=== PATIENT | female | born 1945 | race Caucasian/White ===

== ENCOUNTER 2018-03-25 12:53 | Inpatient (IN) | payer OTHER, BC ==
--- NOTE | 2018-03-25 13:30 | PDOC ---
History of Present Illness <Valencia Dee - Last Filed: 03/25/18 17:02> - General History Source: Patient Exam Limitations: No Limitations - History of Present Illness Initial Comments: 03/25/18 13:19 72 year old woman with a history of obesity, HTN, HLD and bilaterally leg cellulitis who presents after fall last night, L hip pain and inability to raise herself up off the ground. She is unsure whether she had difficulty lifting off the ground due to her L hip pain or her large body habitus. The patient remained on the ground for approximately 12 hours until her home nurse come by saw her and called EMS. She has not eaten or drank anything since then and had urinated on herself. She states the pain is somewhat relieved now. She denies any other extremity pain, abdominal pain, chest pain, back pain or shortness of breath. She has no other compliants at bedside. PMHX: as in HPI PSHX: Meds: Allergies: none Tob: Etoh: Rec drugs: PCP: [place] <Renea Rogers - Last Filed: 03/26/18 09:22> - General Chief Complaint: Injury Stated Complaint: FALL Time Seen by Provider: 03/25/18 13:06 Past History <Valencia Dee - Last Filed: 03/25/18 17:02> - Past Medical History COPD: No HTN: Yes Hypercholesterolemia: Yes - Suicide/Smoking/Psychosocial Hx Smoking History: Former smoker Have you smoked in the past 12 months: No If you are a former smoker, when did you quit?: 35 yrs Information on smoking cessation initiated: No Hx Alcohol Use: No Drug/Substance Use Hx: No <Renea Rogers - Last Filed: 03/26/18 09:22> - Past Medical History Allergies/Adverse Reactions: Allergies Allergy/AdvReac Type Severity Reaction Status Date / Time No Known Allergies Allergy Verified 03/25/18 13:15 Home Medications: Ambulatory Orders Unobtainable 10/05/17 Review of Systems - Review of Systems Able to Perform ROS?: Yes Is the patient limited [place]ar[place]uan proficient: No Constitutional: No: Chills, Diaphoresis, Fever Respiratory: No: Cough, Orthopnea, Shortness of Breath Cardiac (ROS): No: Chest Pain ABD/GI: No: Constipated, Diarrhea, Nausea, Vomiting Neurological: No: Headache, Numbness, Tingling <Renea Rogers - Last Filed: 03/26/18 09:22> *Physical Exam - Vital Signs Last Vital Signs Temp Pulse Resp BP Pulse Ox 98.2 F 80 18 116/74 100 03/25/18 13:12 03/25/18 13:12 03/25/18 13:12 03/25/18 13:12 03/25/18 13:12 <Valencia Dee - Last Filed: 03/25/18 17:02> - Vital Signs Last Vital Signs Temp Pulse Resp BP Pulse Ox 98.2 F 80 18 116/74 100 03/25/18 13:12 03/25/18 13:12 03/25/18 13:12 03/25/18 13:12 03/25/18 13:12 - Physical Exam Comments: 03/25/18 13:31 GENERAL: Awake, alert, and fully oriented, in no acute distress HEAD: No signs of trauma, normocephalic, atraumatic EYES: PERRLA, EOMI, sclera anicteric, conjunctiva clear ENT: oropharynx clear without exudates. Dry mucosa NECK: Normal ROM, supple, no lymphadenopathy, JVD, or masses LUNGS: No distress, speaks full sentences, clear to auscultation bilaterally HEART: Regular rate and rhythm, normal S1 and S2, no murmurs, rubs or gallops, peripheral pulses normal and equal bilaterally. ABDOMEN: Soft, nontender, No guarding, no rebound. No masses EXTREMITIES : Normal inspection, + mild L hip tenderness to palpation, no pelvic instability, 5/5 antigravity strength, NV intact NEUROLOGICAL: Normal speech, normal gait, no focal sensorimotor deficits SKIN: Warm, Dry, normal turgor, no rashes or lesions noted <Renea Rogers - Last Filed: 03/26/18 09:22> ED Treatment Course - LABORATORY CBC & Chemistry Diagram: 03/25/18 13:28 03/25/18 13:28 - ADDITIONAL ORDERS Additional order review: Laboratory Results 03/25/18 03/25/18 03/25/18 14:20 14:10 13:28 PT with INR INR PTT (Actin FS) Sodium 142 Potassium 3.7 Chloride 102 Carbon Dioxide 30 Anion Gap 10 BUN 59 H Creatinine 1.6 H Creat Clearance w eGFR 31.87 Random Glucose 120 H Calcium 9.1 Total Bilirubin 0.8 AST 135 H ALT 106 H Alkaline Phosphatase 485 H Creatine Kinase 1436 H Creatine Kinase Index 1.7 CK-MB (CK-2) 25.66 H Total Protein 7.1 Albumin 3.7 Urine Color Yellow Urine Appearance Clear Urine pH 6.0 Ur Specific [place] 1.016 Urine Protein Negative Urine Glucose (UA) Negative Urine Ketones Negative Urine Blood Negative Urine Nitrite Negative Urine Bilirubin Negative Urine Urobilinogen Negative Ur Leukocyte Esterase Negative 03/25/18 13:28 PT with INR 12.40 INR 1.10 H PTT (Actin FS) 32.1 Sodium Potassium Chloride Carbon Dioxide Anion Gap BUN Creatinine Creat Clearance w eGFR Random Glucose Calcium Total Bilirubin AST ALT Alkaline Phosphatase Creatine Kinase Creatine Kinase Index CK-MB (CK-2) Total Protein Albumin Urine Color Urine Appearance Urine pH Ur Specific [place] Urine Protein Urine Glucose (UA) Urine Ketones Urine Blood Urine Nitrite Urine Bilirubin Urine Urobilinogen Ur Leukocyte Esterase 03/25/18 13:28 RBC 5.33 H MCV 86.6 MCHC 33.6 RDW 14.7 MPV 7.9 Neutrophils % 86.4 H Lymphocytes % 6.7 L D Monocytes % 4.4 Eosinophils % 1.9 Basophils % 0.6 - Medications Given in the ED: ED Medications Discontinued Medications Generic Name Dose Route Start Last Admin Trade Name [place] PRN Reason Stop Dose Admin Ampicillin Sodium/Sulbactam 100 mls @ 200 mls/hr 03/25/18 14:26 03/25/18 16: 53 Sodium 3 gm/ Sodium Chloride IVPB 03/25/18 14:55 200 mls/hr ONCE ONE Administration Vancomycin HCl 1,000 mg/ 250 mls @ 166.667 mls/hr 03/25/18 14:27 03/25/18 14: 34 Dextrose IVPB 03/25/18 15:56 166.667 mls/hr ONCE ONE Administration Protocol <Valencia Dee - Last Filed: 03/25/18 17:02> - LABORATORY CBC & Chemistry Diagram: 03/26/18 07:00 03/26/18 07:00 <Renea Rogers - Last Filed: 03/26/18 09:22> Medical Decision Making - Medical Decision Making 03/25/18 13:33 72 year old woman with a history of obesity, HTN, HLD and bilaterally leg cellulitis who presents after fall last night, L hip pain and inability to raise herself up off the ground. She is unsure whether she had difficulty lifting off the ground due to her L hip pain or her large body habitus. The patient remained on the ground for approximately 12 hours until her home nurse come by saw her and called EMS. She has not eaten or drank anything since then. She states the pain is somewhat relieved now. DDX including but not limited to: fracture vs contusion vs dehydration vs rhabdomyolysis W/U: - cbc, cmp TX: - 1L NS Scores: ED Course: Patient stable in no acute distress. <Renea Rogers - Last Filed: 03/26/18 09:22> *DC/Admit/Observation/Transfer - Discharge Dispostion Decision to Admit order: Yes <Valencia Dee - Last Filed: 03/25/18 17:02> <Renea Rogers - Last Filed: 03/26/18 09:22> Diagnosis at time of Disposition: Cellulitis Qualifiers: Site of cellulitis: extremity Site of cellulitis of extremity: lower extremity Laterality: left Qualified Code(s): L03.116 - Cellulitis of left lower limb Rhabdomyolysis Qualifiers: Rhabdomyolysis type: traumatic Encounter type: initial encounter Qualified Code (s): T79.6XXA - Traumatic ischemia of muscle, initial encounter - Discharge Dispostion Condition at time of disposition: Stable
[2018-03-25 13:41] LABS: BASO % 0.6 % (0-2.0); EOS % 1.9 % (0-4.5); HEMATOCRIT 46.1 % (32.4-45.2); HEMOGLOBIN 15.5 GM/dL (10.7-15.3); LYMPH % 6.7 % (8-40); MCHC 33.6 g/dl (32.0-36.0); MEAN CELL VOLUME 86.6 fl (80-96); MEAN PLT VOLUME 7.9 fl (7.5-11.1); MONO % 4.4 % (3.8-10.2); NEUT % 86.4 % (42.8-82.8); PLATELET COUNT 301 K/MM3 (134-434); RBC 5.33 M/mm3 (3.60-5.2); RDW 14.7 % (11.6-15.6); WHITE BLOOD COUNT 16.9 K/mm3 (4.0-10.0)
[2018-03-25] MEDS: SODIUM CHLORIDE 1,000 ML IV SCH (13:41)
[2018-03-25 14:02] LABS: INR 1.1 (0.83-1.09); PROTHROMBIN TIME (PATIENT) 12.4 SEC (9.7-13.0)
[2018-03-25 14:05] LABS: ACTIVATED PTT 32.1 SECONDS (25.2-36.5)
[2018-03-25 14:12] LABS: ALBUMIN 3.7 g/dl (3.4-5.0); ANION GAP 10 MMOL/L (8-16); BLOOD UREA NITROGEN 59 mg/dL (7-18); CALCIUM 9.1 mg/dL (8.5-10.1); CHLORIDE 102 mmol/L (98-107); CO2 30 mmol/L (21-32); CREATININE 1.6 mg/dL (0.55-1.02); GLUCOSE,RANDOM 120 mg/dL (74-106); POTASSIUM 3.7 mmol/L (3.5-5.1); SGOT/AST 135 U/L (15-37); SGPT/ALT 106 U/L (12-78); SODIUM 142 mmol/L (136-145)
[2018-03-25 14:14] LABS: ALK PHOS 485 U/L (45-117); BILIRUBIN,TOTAL 0.8 mg/dL (0.2-1.0); TOT PROT 7.1 g/dl (6.4-8.2)
[2018-03-25 14:23] LABS: URINE APPEARANCE CLEAR; URINE BILIRUBIN NEGATIVE (<2.0 mg/dL); URINE COLOR YELLOW; URINE GLUCOSE (UA) NEGATIVE (NEGATIVE); URINE KETONE NEGATIVE (NEGATIVE); URINE LEUK ESTERASE NEGATIVE (NEGATIVE); URINE NITRITE NEGATIVE (NEGATIVE); URINE PROTEIN NEGATIVE (NEGATIVE); URINE UROBILINOGEN NEGATIVE mg/dL (0.2-1.0)
--- NOTE | 2018-03-25 14:24 | PDOC ---
Attending Attestation - Resident Resident Name: Renea Rogers - ED Attending Attestation I have performed the following: I have examined & evaluated the patient, The case was reviewed & discussed with the resident, I agree w/resident's findings & plan, Exceptions are as noted - HPI HPI: 72 yo F history morbid obesity, HTN, HL presents s/p fall. She states that she had a mechanical fall, could not get off the floor by herself. Home nurse found her and called EMS. She was lying in a puddle of urine. - Physicial Exam PE: GENERAL: Awake, alert, and fully oriented, in no acute distress. Morbidly obese. HEAD: No signs of trauma EYES: PERRLA, EOMI, sclera anicteric, conjunctiva clear ENT: Auricles normal inspection, hearing grossly normal, nares patent, oropharynx clear without exudates. Moist mucosa NECK: Normal ROM, supple, no lymphadenopathy, JVD, or masses LUNGS: Breath sounds equal, clear to auscultation bilaterally. No wheezes, and no crackles HEART: Regular rate and rhythm, normal S1 and S2, no murmurs, rubs or gallops ABDOMEN: Soft, nontender, normoactive bowel sounds. No guarding, no rebound. No masses EXTREMITIES: B/L inner thighs with erythematous, malodorous rash with scaling. + Erythema to L posterior thigh. Normal range of motion, no edema. No clubbing or cyanosis. No cords or tenderness NEUROLOGICAL: Cranial nerves II through XII grossly intact. Normal speech. Motor and sensation intact. SKIN: Warm, Dry, normal turgor. - Medical Decision Making Pt with significant cellulitis to L posterior thigh after lying in urine all night. Also with significant inflammation of B/L inner thighs, likely yeast based on appearance and odor. Will treat with topical antifungal, will give IV abx for posterior thigh.
[2018-03-25] MEDS ORDERED: AMPICILLIN NA/SULBACTAM NA 3 GM in SODIUM CHLORIDE 100 ML IVPB ONE (14:26)
[2018-03-25] MEDS ORDERED: VANCOMYCIN 1,000 MG in DEXTROSE 5%-WATER - 250 ML IVPB ONE (14:27)
[2018-03-25] MEDS ORDERED: VANCOMYCIN 1 GRAM (PRE-DOCKED) 1,000 MG/250 ML BAG IVPB ONE (14:29)
--- NOTE | 2018-03-25 16:16 | EKG ---
Test Reason : Blood Pressure : / mmHG Vent. Rate : 074 BPM Atrial Rate : 074 BPM P-R Int : 144 ms QRS Dur : 078 ms QT Int : 412 ms P-R-T Axes : 045 -49 075 degrees QTc Int : 457 ms NORMAL SINUS RHYTHM LEFT AXIS DEVIATION INFERIOR INFARCT , AGE UNDETERMINED ANTEROLATERAL INFARCT (CITED ON OR BEFORE 05-OCT-2017) ABNORMAL ECG WHEN COMPARED WITH ECG OF 05-OCT-2017 10:17, NO SIGNIFICANT CHANGE WAS FOUND Confirmed by SACHA MUELLER MD ([id number]) on 03/25/2018 4:15:42 PM Referred By: Confirmed By:SACHA MUELLER MD
--- NOTE | 2018-03-25 17:05 | HP ---
Admitting History and Physical - Primary Care Physician PCP: Anisa Julian - Admission Chief Complaint: fall, unable to get up History of Present Illness: slipped/rolled out of bed at home two days ago, was unable to get up, was lying on the floor in her own urine for 2 days, until friend called on her and called 911. has long h/o recurrent cellulitis and has been to [facility] for rehab after last episode of cellulitis lives alone , walks with bariatric walker History Source: Patient, Friend Limitations to Obtaining History: No Limitations - Past Medical History Cardiovascular: Yes: HTN, Hyperlipdemia Rheumatology: Yes: Gout Endocrine: Yes: Other (morbid obesity) - Past Surgical History Past Surgical History: Yes: Appendectomy (in her youth), Cholecystectomy (1998) Additional Past Surgical History: carpal tunnel 2009 - Smoking History Smoking history: Former smoker Have you smoked in the past 12 months: No If you are a former smoker, when did you quit?: 35 yrs - Alcohol/Substance Use Hx Alcohol Use: No - Social History Usual Living Arrangement: Yes: Alone ADL: Independent History of Recent Travel: No Home Medications - Allergies Allergies/Adverse Reactions: Allergies Allergy/AdvReac Type Severity Reaction Status Date / Time No Known Allergies Allergy Verified 03/25/18 13:15 - Home Medications Home Medications: Ambulatory Orders Unobtainable 10/05/17 Family Disease History - Family Disease History Family History: Unremarkable Review of Systems - Review of Systems Constitutional: reports: Weakness. denies: Fever, Lethargy, Loss of Appetite Eyes: denies: No Symptoms HENT: denies: No Symptoms Neck: denies: No Symptoms Cardiovascular: denies: No Symptoms Respiratory: denies: No Symptoms Gastrointestinal: denies: No Symptoms Genitourinary: denies: No Symptoms Musculoskeletal: reports: Back Pain, Extremity Pain Psychiatric: reports: Anxiety Physical Examination Vital Signs: Vital Signs Temperature 98.2 F 03/25/18 13:12 Pulse Rate 80 03/25/18 13:12 Respiratory Rate 18 03/25/18 13:12 Blood Pressure 116/74 03/25/18 13:12 O2 Sat by Pulse Oximetry (%) 100 03/25/18 13:12 Constitutional: Yes: Obese, Poor Hygeine Eyes: Yes: WNL HENT: Yes: WNL Neck: Yes: WNL Cardiovascular: Yes: WNL Respiratory: Yes: WNL Gastrointestinal: Yes: WNL Edema: No Peripheral Pulses WNL: Yes Integumentary: Yes: Other (eryhtematous indurated skin involving entire left hip surface venous stasis dermatitis over both shins extensive intertrigo in skin folds under abdmoen, groin and thigh folds) Neurological: Yes: WNL Psychiatric: Yes: Agitated, Other (cries easily, looses focus) Labs: CBC, BMP 03/25/18 13:28 03/25/18 13:28 Problem List - Problems (1) Morbid obesity due to excess calories Code(s): E66.01 - MORBID (SEVERE) OBESITY DUE TO EXCESS CALORIES (2) Hyperlipidemia Code(s): E78.5 - HYPERLIPIDEMIA, UNSPECIFIED Qualifiers: Hyperlipidemia type: pure hypercholesterolemia Qualified Code(s): E78.00 - Pure hypercholesterolemia, unspecified; E78.0 - Pure hypercholesterolemia (3) Hypertension Code(s): I10 - ESSENTIAL (PRIMARY) HYPERTENSION Qualifiers: Hypertension type: essential hypertension Qualified Code(s): I10 - Essential (primary) hypertension (4) Cellulitis Code(s): L03.90 - CELLULITIS, UNSPECIFIED Qualifiers: Site of cellulitis: extremity Site of cellulitis of extremity: lower extremity Laterality: left Qualified Code(s): L03.116 - Cellulitis of left lower limb (5) Rhabdomyolysis Code(s): M62.82 - RHABDOMYOLYSIS Qualifiers: Rhabdomyolysis type: traumatic Encounter type: initial encounter Qualified Code(s): T79.6XXA - Traumatic ischemia of muscle, initial encounter Assessment/Plan iv fluids hold statins and antihypertensives for now iv abx will request id eval physical therapy in am dvt prophylaxis
[2018-03-25] MEDS ORDERED: ACETAMINOPHEN 325 MG TABLET (FP) PO PRN (17:39)
[2018-03-25] MEDS ORDERED: LORazepam 0.5 MG TABLET PO PRN (17:42)
[2018-03-25] MEDS: SODIUM CHLORIDE 0.45% 1,000 ML IV SCH (18:52)
[2018-03-25] MEDS: AMPICILLIN NA/SULBACTAM NA 3 GM in SODIUM CHLORIDE 100 ML IVPB SCH (18:52)
[2018-03-25 19:57] VITALS: BMI 60.0
[2018-03-25] MEDS ORDERED: AMPICILLIN NA/SULBACTAM NA 3 GM in SODIUM CHLORIDE 100 ML IVPB SCH (21:00)
[2018-03-25] MEDS ORDERED: PT OWN MED DRAWER 7, Y5N ONE (23:07)
[2018-03-26] MEDS: AMPICILLIN NA/SULBACTAM NA 3 GM in SODIUM CHLORIDE 100 ML IVPB SCH ×3 (02:35→17:21)
[2018-03-26 07:24] LABS: BASO % 0.5 % (0-2.0); EOS % 2.4 % (0-4.5); HEMATOCRIT 40.4 % (32.4-45.2); HEMOGLOBIN 12.9 GM/dL (10.7-15.3); LYMPH % 9.8 % (8-40); MCH 27.8 pg (25.7-33.7); MCHC 31.8 g/dl (32.0-36.0); MEAN CELL VOLUME 87.5 fl (80-96); MEAN PLT VOLUME 7.9 fl (7.5-11.1); MONO % 6.2 % (3.8-10.2); NEUT % 81.1 % (42.8-82.8); PLATELET COUNT 212 K/MM3 (134-434); RBC 4.62 M/mm3 (3.60-5.2); RDW 14.8 % (11.6-15.6); WHITE BLOOD COUNT 14.4 K/mm3 (4.0-10.0)
[2018-03-26 07:58] LABS: CHLORIDE 105 mmol/L (98-107); POTASSIUM 3.4 mmol/L (3.5-5.1); SODIUM 141 mmol/L (136-145)
[2018-03-26 08:15] LABS: ALK PHOS 417 U/L (45-117); ANION GAP 10 MMOL/L (8-16); BILIRUBIN,TOTAL 0.5 mg/dL (0.2-1.0); BLOOD UREA NITROGEN 62 mg/dL (7-18); CALCIUM 8.5 mg/dL (8.5-10.1); CO2 26 mmol/L (21-32); CREATININE 1.7 mg/dL (0.55-1.02); GLUCOSE,RANDOM 106 mg/dL (74-106); SGOT/AST 98 U/L (15-37); SGPT/ALT 85 U/L (12-78); TOT PROT 5.7 g/dl (6.4-8.2)
[2018-03-26] MEDS ORDERED: PT OWN MED DRAWER 7, Y5N ONE ×3 (09:39→21:47)
[2018-03-26] MEDS: ENOXAPARIN NA (PORCINE) 40 MG/0.4 ML DISP.SYRIN SQ SCH (09:48)
[2018-03-26] MEDS ORDERED: POTASSIUM CHLORIDE TABS 20 MEQ TABLET.ER (FP) PO ONE ×2 (11:28→17:30)
--- NOTE | 2018-03-26 11:59 | PN ---
Progress Note (short form) - Note Progress Note: no new complaints CBC, BMP 03/26/18 07:00 03/26/18 07:00 Vital Signs Period Temp Pulse Resp BP Sys/[place] Pulse Ox Last 24 Hr 97.8 F-98.2 F 71-82 18-20 94-134/40-85 95-100 s1s2 rrr lungs cta abd soft nt morbid obesity left thigh cellulitis/erythema resolved skin fold erythema under abdmone, groin, this perists-pot need to be cleaned before applying topicval care-so far refused also refused xray hip and pelvis transferred without assistance to toilet imp cellulitis fall rhabdomyolysis HTN high cholesterol morbid obesity hypokalemia plan cont iv fluid iv unasyn until tomorrow physical therapy eval replete k local skin care-she needs to be bathed, pt agreed also agreed to xray hip and pelvis Problem List - Problems (1) Morbid obesity due to excess calories Code(s): E66.01 - MORBID (SEVERE) OBESITY DUE TO EXCESS CALORIES (2) Hyperlipidemia Code(s): E78.5 - HYPERLIPIDEMIA, UNSPECIFIED Qualifiers: Hyperlipidemia type: pure hypercholesterolemia Qualified Code(s): E78.00 - Pure hypercholesterolemia, unspecified; E78.0 - Pure hypercholesterolemia (3) Hypertension Code(s): I10 - ESSENTIAL (PRIMARY) HYPERTENSION Qualifiers: Hypertension type: essential hypertension Qualified Code(s): I10 - Essential (primary) hypertension (4) Cellulitis Code(s): L03.90 - CELLULITIS, UNSPECIFIED Qualifiers: Site of cellulitis: extremity Site of cellulitis of extremity: lower extremity Laterality: left Qualified Code(s): L03.116 - Cellulitis of left lower limb (5) Rhabdomyolysis Code(s): M62.82 - RHABDOMYOLYSIS Qualifiers: Rhabdomyolysis type: traumatic Encounter type: initial encounter Qualified Code(s): T79.6XXA - Traumatic ischemia of muscle, initial encounter
--- NOTE | 2018-03-26 12:07 | PN ---
Progress Note (short form) - Note Progress Note: ID Consult dictated Cellulitis L LE Morbid obesity Azotemia Continue unasyn Topical antifungal
--- NOTE | 2018-03-26 16:11 | CONS ---
DATE OF CONSULTATION: DATE OF DICTATION: 03/26/2018 HISTORY OF PRESENT ILLNESS: The patient is a 72-year-old morbidly obese female who was evaluated for cellulitis of the left lower extremity. The patient was admitted to the hospital on March 25, 2018 after a fall at home. According to the notes, she had slipped from her bed onto the floor. She had been unable to get up and had apparently been on the floor for approximately 12 hours. She was incontinent of urine. She complained of left hip pain. She presented to the emergency room where she was noted to have erythema involving the medial aspect of the left lower extremity. The patient had apparently refused an x-ray of the hip and pelvis. She was noted to have erythema involving the left medial thigh and skin fold under the abdomen. The patient gives a history of cellulitis in 2016 for which she was hospitalized at [facility]. She states the cellulitis never completely resolved. She denies any associated fever or chills. PAST MEDICAL HISTORY: Positive for morbid obesity, hypertension, hyperlipidemia, a history of bilateral lower extremity cellulitis. PAST SURGICAL HISTORY: She is status post appendectomy and cholecystectomy. ALLERGIES: No known allergies. MEDICATIONS: Tylenol, Unasyn, Lovenox, Ativan, topical Nystatin. SOCIAL HISTORY: She resides at home alone. She ambulates with a walker. She is a former smoker. SYSTEMS REVIEW: Neurologic: No loss of consciousness, seizure activity, focal weakness. Cardiac: Negative for chest pain or palpitations. Respiratory: Negative for cough or sputum production. Gastrointestinal: Negative for vomiting or diarrhea. Genitourinary: Negative for urinary tract infection. LAB DATA: White count on admission 16.9, currently 14.4; 81 neutrophils, 9 lymphocytes, 6 monocytes, 2 eosinophils. Hematocrit 40.4, platelet count 212, BUN 62, creatinine 1.7. Total bilirubin 0.5, alkaline phosphatase 417, AST 98, CPK 1436. Urine: Leukocyte esterase negative. Blood and urine cultures are pending. PHYSICAL EXAMINATION: General: She is morbidly obese; out of bed to chair. Vital Signs: Temperature 97.8, pulse 71 and regular, blood pressure 131/70, respiratory rate 20 per minute. HEENT: Sclerae anicteric. Heart: Heart sounds S1, S2. Lungs: Clear. Abdomen: Soft, obese. Extremities: Positive for bilateral lower extremity edema and stasis dermatitis. There is erythema present on the medial aspect of the left thigh and in the skin folds of the groin. It is warm to touch. There is no purulent drainage noted. IMPRESSION: 1. Cellulitis, left lower extremity. 2. Status post fall. 3. Morbid obesity. 4. Azotemia. PLAN: 1. Continue empiric coverage of skin pathogens with Unasyn 3 grams IV piggyback every 8 hours. 2. Topical antifungal cream. 3. Follow up CBC. Thanks for the kind referral. JHOAN JONES M.D. GUILLERMO/[id number]
[2018-03-26] MEDS: NYSTATIN POWDER 100,000 UNITS/GM - 15 GM TOPICAL POWDER TP SCH (17:24)
[2018-03-27] MEDS: AMPICILLIN NA/SULBACTAM NA 3 GM in SODIUM CHLORIDE 100 ML IVPB SCH ×2 (01:56→09:11)
[2018-03-27 07:55] LABS: BASO % 0.5 % (0-2.0); EOS % 3.2 % (0-4.5); HEMATOCRIT 38.4 % (32.4-45.2); HEMOGLOBIN 12.5 GM/dL (10.7-15.3); LYMPH % 14.7 % (8-40); MCH 28.3 pg (25.7-33.7); MCHC 32.4 g/dl (32.0-36.0); MEAN CELL VOLUME 87.4 fl (80-96); MONO % 5.6 % (3.8-10.2); PLATELET COUNT 199 K/MM3 (134-434); RBC 4.39 M/mm3 (3.60-5.2); RDW 14.7 % (11.6-15.6); WHITE BLOOD COUNT 12.6 K/mm3 (4.0-10.0)
--- NOTE | 2018-03-27 08:30 | PN ---
Progress Note (short form) - Note Progress Note: no new complaints CBC, BMP CBC, BMP 03/27/18 06:20 Vital Signs Period Temp Pulse Resp BP Sys/[place] Pulse Ox Last 24 Hr 97.6 F-98 F 71-86 20-20 94-136/40-70 94-94 s1s2 rrr lungs cta abd soft nt morbid obesity left thigh cellulitis/erythema resolved chronic stasis dermatitis with lower ext, mild warmth and erythema may be chronic awaiting PT eval-pt has her bariatric walker now skin looks better xray left hip and pelvis shows no fracture imp cellulitis fall rhabdomyolysis HTN high cholesterol morbid obesity hypokalemia plan cont iv fluid pending lab results iv unasyn for now physical therapy eval replete k local skin care-she needs to be bathed, pt agreed VNS for home restorative PT Problem List - Problems (1) Morbid obesity due to excess calories Code(s): E66.01 - MORBID (SEVERE) OBESITY DUE TO EXCESS CALORIES (2) Hyperlipidemia Code(s): E78.5 - HYPERLIPIDEMIA, UNSPECIFIED Qualifiers: Hyperlipidemia type: pure hypercholesterolemia Qualified Code(s): E78.00 - Pure hypercholesterolemia, unspecified; E78.0 - Pure hypercholesterolemia (3) Hypertension Code(s): I10 - ESSENTIAL (PRIMARY) HYPERTENSION Qualifiers: Hypertension type: essential hypertension Qualified Code(s): I10 - Essential (primary) hypertension (4) Cellulitis Code(s): L03.90 - CELLULITIS, UNSPECIFIED Qualifiers: Site of cellulitis: extremity Site of cellulitis of extremity: lower extremity Laterality: left Qualified Code(s): L03.116 - Cellulitis of left lower limb (5) Rhabdomyolysis Code(s): M62.82 - RHABDOMYOLYSIS Qualifiers: Rhabdomyolysis type: traumatic Encounter type: initial encounter Qualified Code(s): T79.6XXA - Traumatic ischemia of muscle, initial encounter
[2018-03-27 08:56] LABS: ALBUMIN 2.9 g/dl (3.4-5.0); ANION GAP 11 MMOL/L (8-16); BLOOD UREA NITROGEN 60 mg/dL (7-18); CALCIUM 8.1 mg/dL (8.5-10.1); CHLORIDE 106 mmol/L (98-107); CO2 25 mmol/L (21-32); GLUCOSE,RANDOM 91 mg/dL (74-106); POTASSIUM 3.8 mmol/L (3.5-5.1); SODIUM 142 mmol/L (136-145)
[2018-03-27 08:59] LABS: ALK PHOS 359 U/L (45-117); BILIRUBIN,TOTAL 0.5 mg/dL (0.2-1.0); CREATININE 1.7 mg/dL (0.55-1.02); SGOT/AST 68 U/L (15-37); SGPT/ALT 77 U/L (12-78); TOT PROT 5.5 g/dl (6.4-8.2)
[2018-03-27] MEDS: SODIUM CHLORIDE 0.45% 1,000 ML IV SCH ×2 (09:10→17:16)
[2018-03-27] MEDS: ENOXAPARIN NA (PORCINE) 40 MG/0.4 ML DISP.SYRIN SQ SCH (09:11)
[2018-03-27] MEDS: NYSTATIN POWDER 100,000 UNITS/GM - 15 GM TOPICAL POWDER TP SCH (09:12)
[2018-03-27] MEDS: SODIUM CHLORIDE 1,000 ML IV SCH (17:15)
[2018-03-27] MEDS: AMOX TR/POT CLAV 875MG/125MG TABLETS (FP) PO SCH (17:16)
--- NOTE | 2018-03-28 09:15 | DS ---
Physical Examination Vital Signs: Vital Signs Temperature 98.4 F 03/27/18 23:45 Pulse Rate 76 03/27/18 23:45 Respiratory Rate 20 03/27/18 23:45 Blood Pressure 140/64 03/27/18 23:45 O2 Sat by Pulse Oximetry (%) 94 L 03/26/18 21:00 Constitutional: Yes: Anxious, Obese Eyes: Yes: Conjunctiva Clear HENT: Yes: Atraumatic, Normocephalic Cardiovascular: Yes: Regular Rate and Rhythm Respiratory: Yes: CTA Bilaterally Gastrointestinal: Yes: Normal Bowel Sounds, Soft Edema: Yes Peripheral Pulses WNL: Yes Integumentary: Yes: Other (chronic venous stasis on both lower extremities erymea decreased, temperature normal erythema in overlapping skin folds persists) Labs: CBC, BMP 03/27/18 06:20 03/27/18 06:20 Discharge Summary Reason For Visit: CELLULITIS,RHABDOMYOLYSIS Current Active Problems Cellulitis (Acute) Hyperlipidemia (Acute) Hypertension (Acute) Morbid obesity due to excess calories (Acute) Rhabdomyolysis (Acute) Hospital Course: morbidly obese lady with h/o htn, chr. venous stasis admitted after a fall at home. on admission had somewhat worsened renal function-has CKD with baseline creat 1.7 mild rhabdomiolysis and lower ext. cellulitis was treated with iv fluids, iv abx. skin has much improved, renal function is at baseline-she is medically stable to dc home to finish oral abx course. of note throughout hospital stay pt was non-compliant with skin care-refusing cleaning attempts. pulled out her iv line several times and did not allow it to be replaced. Condition: Fair - Instructions Referrals: Anisa Julian MD [Primary Care Provider] - Disposition: VNS/HOME HEALTH CARE - Home Medications Comprehensive Discharge Medication List: Ambulatory Orders Atorvastatin Ca [Lipitor] 10 mg PO HS 03/26/18 Citalopram Hydrobromide [Citalopram HBr] 20 mg PO DAILY 03/26/18 Propylene Glycol/Peg 400 [Systane 0.3-0.4% Eye Drops] 15 ml OP DAILY 03/26/18 Amoxicillin/Potassium Clav [Augmentin 875-125 Tablet] 1 each PO BID #10 tablet 03/27/18 Nystatin Powder [Nystop Powder -] 1 applic TP DAILY #1 bottle 03/27/18
[2018-03-28] MEDS: ENOXAPARIN NA (PORCINE) 40 MG/0.4 ML DISP.SYRIN SQ SCH (09:39)
[2018-03-28] MEDS: NYSTATIN POWDER 100,000 UNITS/GM - 15 GM TOPICAL POWDER TP SCH (09:39)
[2018-03-28] MEDS: AMOX TR/POT CLAV 875MG/125MG TABLETS (FP) PO SCH ×2 (09:39→17:40)
[2018-03-28] MEDS: SODIUM CHLORIDE 1,000 ML IV SCH (13:47)
[2018-03-28 14:23] VITALS: BP 142/67; PULSE 78; TEMP 98.3
[2018-03-28] MEDS: SODIUM CHLORIDE 0.45% 1,000 ML IV SCH (17:35)
== END 2018-03-28 18:54 | disposition home health service (06) | DRG 603 ==
LOC: JER 12:53 → JERBED 16:59 → J6S 19:36
PROVIDERS: ADMIT Internal Medicine; ATTEND Internal Medicine
DX: L03.116 Cellulitis of left lower limb (principal); M62.82 Rhabdomyolysis; Z68.44 Body mass index [BMI] 60.0-69.9, adult; E78.5 Hyperlipidemia, unspecified; E66.01 Morbid (severe) obesity due to excess calories; I10 Essential (primary) hypertension
CPT/HCPCS: 36415; 73523-TC-FY; 80053; 81003; 82550; 82553; 85025; 85610; 85730; 87040; 87086; 93005; 93010; 97116-GP; 97161-GP; 99284-25; J7030

== ENCOUNTER 2023-05-24 15:02 | Inpatient (IN) | payer OTHER, BC ==
[2023-05-24 19:29] LABS: BASO % 0.4 % (0-2.0); EOS % 2.8 % (0-4.5); HEMATOCRIT 40.7 % (32.4-45.2); MCH 28.4 pg (25.7-33.7); MEAN CELL VOLUME 88.9 fl (80-96); MEAN PLT VOLUME 7.4 fl (7.5-11.1); MONO % 5.5 % (3.8-10.2); NEUT % 79.3 % (42.8-82.8); PLATELET COUNT 187 10^3/uL (134-434); RBC 4.58 M/mm3 (3.60-5.2); RDW 14.6 % (11.6-15.6); WHITE BLOOD COUNT 10.6 K/mm3 (4.0-10.0)
[2023-05-24 19:49] LABS: POTASSIUM 4.6 mmol/L (3.5-5.1)
[2023-05-24 19:51] LABS: ALBUMIN 3.5 g/dl (3.4-5.0); BLOOD UREA NITROGEN 52.5 mg/dL (7-18)
[2023-05-24 19:52] LABS: MAGNESIUM 1.8 mg/dL (1.8-2.4)
[2023-05-24] MEDS ORDERED: LIDOCAINE 5% TOPICAL PATCH TP ONE (19:53)
[2023-05-24] MEDS ORDERED: ACETAMINOPHEN 1000 MG/100 ML BAG IVPB ONE (19:53)
[2023-05-24 19:54] LABS: CREATININE 1.3 mg/dL (0.55-1.3)
[2023-05-24] MEDS ORDERED: SODIUM CHLORIDE 0.9% 1000 ML INFUS.BAG IV ONE (19:54)
[2023-05-24 19:56] LABS: BILIRUBIN,TOTAL 0.4 mg/dL (0.2-1); TOT PROT 6.9 g/dl (6.4-8.2)
[2023-05-24] MEDS ORDERED: ACETAMINOPHEN INJECTION 100 ML IVPB ONE (20:26)
[2023-05-24] MEDS ORDERED: LIDOCAINE 4% PATCH TP ONE (20:26)
[2023-05-24 20:57] LABS: EPI CELLS 23 /uL (0-25.1); HYALINE CASTS 0 /uL (0-3.1); PH,URINE 5.5 (5.0-8.0); URINE APPEARANCE CLOUDY; URINE BACTERIA 168 /uL (0-1359); URINE BILIRUBIN NEGATIVE (NEGATIVE); URINE COLOR YELLOW; URINE GLUCOSE (UA) NEGATIVE (NEGATIVE); URINE KETONE NEGATIVE (NEGATIVE); URINE LEUK ESTERASE 3+ (NEGATIVE); URINE NITRITE NEGATIVE (NEGATIVE); URINE PROTEIN 1+ (NEGATIVE); URINE RBC 33 /uL (0-23.9); URINE UROBILINOGEN 0.2 mg/dL (0.2-1.0); URINE WBC 2075 /uL (0-25.8)
[2023-05-24] MEDS ORDERED: CEFTRIAXONE 1,000 MG in DEXTROSE 5%-WATER - 50 ML IVPB ONE (21:10)
[2023-05-24] MEDS ORDERED: CEFTRIAXONE 1 GM/50 ML BAG ONE (21:19)
[2023-05-24] MEDS ORDERED: LIDOCAINE PATCH REMOVAL MC SCH (22:00)
[2023-05-25 02:56] VITALS: BMI 55.0
[2023-05-25] MEDS: FLUTICASONE/UMECLIDIN/VILANTER(200-62.5-25 TRELEGY ELLIPTA) INAHLER IH SCH (09:06)
[2023-05-25] MEDS: ENOXAPARIN NA (PORCINE) 40 MG/0.4 ML DISP.SYRIN SQ SCH (11:16)
[2023-05-25] MEDS: LIDOCAINE PATCH REMOVAL MC ONE ×2 (11:17→12:37)
[2023-05-25] MEDS: ESCITALOPRAM OXALATE 20 MG TABLET PO SCH (17:07)
[2023-05-25] MEDS: VALSARTAN 40 MG TABLET PO SCH (17:07)
[2023-05-25] MEDS: ALLOPURINOL 100 MG TABLET (FP) PO SCH (17:07)
[2023-05-25] MEDS: CEPHALEXIN MONOHYDRATE 500 MG CAPSULE (UD) PO SCH (21:28)
[2023-05-25] MEDS: ATORVASTATIN CA 10 MG TABLET (FP) PO SCH (21:28)
[2023-05-25] MEDS: LIDOCAINE PATCH REMOVAL MC SCH (21:51)
[2023-05-25] MEDS ORDERED: ARTIFICIAL TEARS (POLYVINYL ALCOHOL) OPTH DROPS OU PRN (22:00)
[2023-05-26] MEDS: ACETAMINOPHEN 325 MG TABLET (FP) PO PRN (07:14)
[2023-05-26 08:22] LABS: BASO % 0.9 % (0-2.0); EOS % 2.7 % (0-4.5); HEMATOCRIT 34.3 % (32.4-45.2); HEMOGLOBIN 11.4 GM/dL (10.7-15.3); LYMPH % 16.1 % (8-40); MCH 29.1 pg (25.7-33.7); MCHC 33.1 g/dl (32.0-36.0); MEAN CELL VOLUME 87.9 fl (80-96); MEAN PLT VOLUME 7.8 fl (7.5-11.1); MONO % 7.7 % (3.8-10.2); NEUT % 72.6 % (42.8-82.8); PLATELET COUNT 167 10^3/uL (134-434); RBC 3.91 M/mm3 (3.60-5.2); RDW 14.5 % (11.6-15.6); WHITE BLOOD COUNT 10.2 K/mm3 (4.0-10.0)
[2023-05-26 08:44] LABS: POTASSIUM 4.6 mmol/L (3.5-5.1)
[2023-05-26 08:49] LABS: CALCIUM 8.5 mg/dL (8.5-10.1)
[2023-05-26 08:50] LABS: BLOOD UREA NITROGEN 46.8 mg/dL (7-18)
[2023-05-26 08:53] LABS: CREATININE 1.4 mg/dL (0.55-1.3)
[2023-05-26 08:55] LABS: BILIRUBIN,TOTAL 0.5 mg/dL (0.2-1); TOT PROT 6.2 g/dl (6.4-8.2)
[2023-05-26] MEDS ORDERED: FUROSEMIDE 40 MG TABLET (FP) PO SCH (10:00)
[2023-05-26] MEDS: LIDOCAINE 4% PATCH TP SCH (10:14)
[2023-05-26] MEDS: VALSARTAN 40 MG TABLET PO SCH (10:15)
[2023-05-26] MEDS: ESCITALOPRAM OXALATE 20 MG TABLET PO SCH (10:15)
[2023-05-26] MEDS: CEPHALEXIN MONOHYDRATE 500 MG CAPSULE (UD) PO SCH (10:15)
[2023-05-26] MEDS: FLUTICASONE/UMECLIDIN/VILANTER(200-62.5-25 TRELEGY ELLIPTA) INAHLER IH SCH (10:15)
[2023-05-26] MEDS: ALLOPURINOL 100 MG TABLET (FP) PO SCH (10:15)
[2023-05-26] MEDS: ENOXAPARIN NA (PORCINE) 40 MG/0.4 ML DISP.SYRIN SQ SCH (11:17)
[2023-05-26] MEDS: ATORVASTATIN CA 10 MG TABLET (FP) PO SCH (21:12)
[2023-05-26] MEDS: LIDOCAINE PATCH REMOVAL MC SCH (21:13)
[2023-05-27] MEDS: ACETAMINOPHEN 325 MG TABLET (FP) PO PRN (05:41)
[2023-05-27 09:33] LABS: CHOLESTEROL 156 mg/dL (50-200)
[2023-05-27 09:34] LABS: LDL CHOLESTEROL (ONLY SJRH) 103 mg/dL (5-100)
[2023-05-27 09:36] LABS: HDL CHOLESTEROL 34 mg/dL (40-60)
[2023-05-27] MEDS: ENOXAPARIN NA (PORCINE) 40 MG/0.4 ML DISP.SYRIN SQ SCH (10:22)
[2023-05-27] MEDS: VALSARTAN 40 MG TABLET PO SCH (10:22)
[2023-05-27] MEDS: ALLOPURINOL 100 MG TABLET (FP) PO SCH (10:22)
[2023-05-27] MEDS: FUROSEMIDE 20 MG TABLET (FP) PO SCH (10:23)
[2023-05-27] MEDS: LIDOCAINE 4% PATCH TP SCH (10:23)
[2023-05-27] MEDS: ESCITALOPRAM OXALATE 20 MG TABLET PO SCH (11:47)
[2023-05-27] MEDS: FLUTICASONE/UMECLIDIN/VILANTER(200-62.5-25 TRELEGY ELLIPTA) INAHLER IH SCH (11:47)
[2023-05-27] MEDS: ATORVASTATIN CA 10 MG TABLET (FP) PO SCH (21:04)
[2023-05-27] MEDS: LIDOCAINE PATCH REMOVAL MC SCH (21:05)
[2023-05-28 09:41] LABS: POTASSIUM 4.6 mmol/L (3.5-5.1)
[2023-05-28 09:46] LABS: CALCIUM 8.1 mg/dL (8.5-10.1)
[2023-05-28 09:47] LABS: BLOOD UREA NITROGEN 47.4 mg/dL (7-18)
[2023-05-28 09:51] LABS: CREATININE 1.4 mg/dL (0.55-1.3)
[2023-05-28] MEDS: FLUTICASONE/UMECLIDIN/VILANTER(200-62.5-25 TRELEGY ELLIPTA) INAHLER IH SCH (10:11)
[2023-05-28] MEDS: VALSARTAN 40 MG TABLET PO SCH (10:11)
[2023-05-28] MEDS: ESCITALOPRAM OXALATE 20 MG TABLET PO SCH (10:11)
[2023-05-28] MEDS: FUROSEMIDE 20 MG TABLET (FP) PO SCH (10:11)
[2023-05-28] MEDS: LIDOCAINE 4% PATCH TP SCH (10:12)
[2023-05-28] MEDS: ENOXAPARIN NA (PORCINE) 40 MG/0.4 ML DISP.SYRIN SQ SCH (10:12)
[2023-05-28] MEDS: ALLOPURINOL 100 MG TABLET (FP) PO SCH (10:12)
[2023-05-28] MEDS: ACETAMINOPHEN 325 MG TABLET (FP) PO PRN (15:51)
[2023-05-28] MEDS: LIDOCAINE PATCH REMOVAL MC SCH (22:10)
[2023-05-28] MEDS: ATORVASTATIN CA 10 MG TABLET (FP) PO SCH (22:10)
[2023-05-29 06:53] VITALS: RESP 16
[2023-05-29] MEDS: ENOXAPARIN NA (PORCINE) 40 MG/0.4 ML DISP.SYRIN SQ SCH (11:30)
[2023-05-29] MEDS: LIDOCAINE 4% PATCH TP SCH (11:30)
[2023-05-29] MEDS: FLUTICASONE/UMECLIDIN/VILANTER(200-62.5-25 TRELEGY ELLIPTA) INAHLER IH SCH (11:31)
[2023-05-29] MEDS: FUROSEMIDE 20 MG TABLET (FP) PO SCH (11:31)
[2023-05-29] MEDS: ALLOPURINOL 100 MG TABLET (FP) PO SCH (11:31)
[2023-05-29] MEDS: VALSARTAN 40 MG TABLET PO SCH (11:31)
[2023-05-29] MEDS: ESCITALOPRAM OXALATE 20 MG TABLET PO SCH (11:31)
[2023-05-29 14:20] VITALS: BP 133/62; PULSE 57; TEMP 97.8
[2023-05-29] MEDS: ACETAMINOPHEN 325 MG TABLET (FP) PO PRN (16:36)
== END 2023-05-29 19:45 | DRG 556 ==
LOC: JER 15:02 → INTOOBSV 22:23 → JERBED 22:23 → J7W 05-25 00:38 → OBSVTOIN 05-25 08:59
PROVIDERS: ADMIT Student in an Organized Health Care Education/Training Program; ATTEND Internal Medicine
DX: R26.2 Difficulty in walking, not elsewhere classified (principal); I50.32 Chronic diastolic (congestive) heart failure; Z68.43 Body mass index [BMI] 50.0-59.9, adult; I11.0 Hypertensive heart disease with heart failure; E66.01 Morbid (severe) obesity due to excess calories; E78.5 Hyperlipidemia, unspecified; M10.9 Gout, unspecified; I87.2 Venous insufficiency (chronic) (peripheral); W18.30XA Fall on same level, unspecified, initial encounter; Y92.098 Other place in other non-institutional residence as the place of occurrence of the external cause
CPT/HCPCS: 0241U-QW; 36415; 70450-TC; 71046-TC-FY; 72125-TC; 72170-TC-FY; 72192-TC; 73030-TC-RT-FY; 73502-TC-LT-FY; 73552-TC-LT-FY; 73562-TC-LT-FY; 80048; 80053; 80061; 81003; 82550; 83735; 84484; 85025; 87086; 87635; 93005; 93010; 97116-GP; 97162-GP; 99285-25; G0378